=== PATIENT | female | born 1995 | race African-American/Black ===

== ENCOUNTER 2016-08-09 11:00 | Emergency (ER) | payer MEDICAID ==
[~2016-08-09] VITALS: Ht 152.4 cm; Wt 50.0 kg
[2016-08-09 11:03] VITALS: BP 132/78; PULSE 74; RESP 16; TEMP 98; O2SAT 100
[2016-08-09 11:38] LABS: BLOOD, URINE NEG (NEG); COMMENT (UR) CULT NOT INDICATED; CULTURE IF INDICATED CULT NOT INDICATED; GLUCOSE,URINE NEG (NEG); KETONE, URINE NEG (NEG); MUCUS URINE MOD /lpf (OCC); NITRITE,URINE NEG (NEG); PH, URINE 6.5 (5.0-8.5); SQUAMOUS EPITHELIAL CELL URINE 1 /hpf (0-5); URINE COLOR YELLOW (YELLW/STRAW)
[2016-08-09] MEDS ORDERED: SODIUM CHLOR 0.9% 1000 ML INJ 1,000 ML IV SCH (11:39)
[2016-08-09] MEDS ORDERED: SODIUM CHLORIDE 0.9% FLUSH 5 ML FLUSH IVF PRN (11:45)
[2016-08-09] MEDS ORDERED: ONDANSETRON HCL 4 MG/2 ML VIAL IVP ONE (11:45)
[2016-08-09] MEDS ORDERED: DICYCLOMINE HCL 10 MG CAP PO ONE (11:45)
[2016-08-09] MEDS ORDERED: MORPHINE SULFATE 4 MG/ML INJ IV PUSH ONE (11:45)
--- NOTE | 2016-08-09 11:46 | PD ---
HPI Chief Complaint: GI Complaint Time Seen by Provider: 11:35 Travel History International Travel<30 days: No Contact w/Intl Traveler<30days: No Traveled to known affect area: No History of Present Illness HPI The patient is a 21-year-old female who presents emergency department for abdominal pain. The patient states she developed abdominal pain last night. Abdominal pain initially was generalized, however, is currently located in the lower quadrants, left greater than right. The patient does note diarrhea which she describes as loose and soft without any visible blood. The patient also complains of nausea without any vomiting. The patient denies any fever, chills , or sweats. The patient denies any upper respiratory symptoms including cough , congestion, sore throat, and denies any associated myalgias. The patient's last menstrual cycle was July 29, 2016. The patient denies any dysuria, frequency, urgency, vaginal discharge, or vaginal bleeding. The patient's symptoms are moderate there are no known alleviating or exacerbating factors. The patient denies any sick contacts at home. Patient denies any recent international travel. The patient denies ingestion of any unusual foods recently. The patient denies any known history of inflammatory bowel disease. PFSH Past Medical History Medical History: Denies Significant Hx Developmental Delay: No Diminished Hearing: No Immunizations Current: Yes Tetanus Vaccination: < 5 Years Influenza Vaccination: No ?: Not LMP: 08/03/16 Past Surgical History Other Surgery: Yes (LUMP REMOVED FROM BREAST) Social History Alcohol Use: No Tobacco Use: No Substance Use: No Allergies-Medications (Allergen,Severity, Reaction): Coded Allergies: No Known Allergies (Unverified , 08/09/16) Reported Meds & Prescriptions Reported Meds & Active Scripts Active No Active Prescriptions or Reported Medications Review of Systems Except as stated in HPI: all other systems reviewed are Neg General / Constitutional: No: Fever HENT: No: Headaches, Lightheadedness, Sore Throat, Congestion Cardiovascular: No: Chest Pain or Discomfort Respiratory: No: Cough Gastrointestinal: Positive: Nausea, Diarrhea, Abdominal Pain, No: Vomiting Genitourinary: No: Urgency, Frequency, Dysuria, Discharge, Vaginal Bleeding Musculoskeletal: No: Myalgias Skin: No Rash Physical Exam Narrative GENERAL: Awake, alert, pleasant 21-year-old female who appears her stated age and is in no acute respiratory distress. SKIN: Warm and dry. HEAD: Atraumatic. Normocephalic. EYES: Pupils equal and round. No scleral icterus. No injection or drainage. ENT: No nasal bleeding or discharge. Mucous membranes pink and moist. NECK: Trachea midline. No JVD. CARDIOVASCULAR: Regular rate and rhythm. No murmur appreciated. RESPIRATORY: No accessory muscle use. Clear to auscultation. Breath sounds equal bilaterally. GASTROINTESTINAL: Abdomen soft, tender palpation left and right lower quadrant. No epigastric tenderness noted. Negative Edward's. Back: No CVA tenderness. MUSCULOSKELETAL: No obvious deformities. No clubbing. No cyanosis. No edema. NEUROLOGICAL: Awake and alert. No obvious cranial nerve deficits. Motor grossly within normal limits. Normal speech. PSYCHIATRIC: Appropriate mood and affect; insight and judgment normal. Data Data Last Documented VS Vital Signs Date Time Temp Pulse Resp B/P Pulse Ox O2 Delivery O2 Flow Rate FiO2 08/09/16 11:03 98.0 74 16 132/78 100 Room Air Orders Urinalysis - C+S If Indicated (08/09/16 11:08) Ed Urine Pregnancytest Poc (08/09/16 11:08) Complete Blood Count With Diff (08/09/16 11:39) Comprehensive Metabolic Panel (08/09/16 11:39) Lipase (08/09/16 11:39) Ct Abd/Pel W/O Iv Contrast (08/09/16 11:39) Iv Access Insert/Monitor (08/09/16 11:39) Ecg Monitoring (08/09/16 11:39) Oximetry (08/09/16 11:39) Morphine Inj (Morphine Inj) (08/09/16 11:45) Ondansetron Inj (Zofran Inj) (08/09/16 11:45) Sodium Chlor 0.9% 1000 Ml Inj (Ns 1000 M (08/09/16 11:39) Sodium Chloride 0.9% Flush (Ns Flush) (08/09/16 11:45) Dicyclomine (Bentyl) (08/09/16 11:45) Us Pelvis Comp W Transvaginal (08/09/16 ) Labs Laboratory Tests Test 08/09/16 08/09/16 11:10 11:50 Urine Color YELLOW Urine Turbidity CLEAR Urine pH 6.5 Urine Specific Termo 1.023 Urine Protein NEG mg/dL Urine Glucose (UA) NEG mg/dL Urine Ketones NEG mg/dL Urine Occult Blood NEG Urine Nitrite NEG Urine Bilirubin NEG Urine Urobilinogen LESS THAN 2.0 MG/DL Urine Leukocyte Esterase NEG Urine RBC LESS THAN 1 /hpf Urine WBC 1 /hpf Urine Squamous Epithelial 1 /hpf Cells Urine Mucus MOD /lpf Microscopic Urinalysis Comment CULT NOT INDICATED White Blood Count 7.2 TH/MM3 Red Blood Count 4.79 MIL/MM3 Hemoglobin 13.7 GM/DL Hematocrit 39.4 % Mean Corpuscular Volume 82.1 FL Mean Corpuscular Hemoglobin 28.6 PG Mean Corpuscular Hemoglobin 34.8 % Concent Red Cell Distribution Width 16.6 % Platelet Count 230 TH/MM3 Mean Platelet Volume 10.2 FL Neutrophils (%) (Auto) 67.3 % Lymphocytes (%) (Auto) 26.9 % Monocytes (%) (Auto) 5.0 % Eosinophils (%) (Auto) 0.6 % Basophils (%) (Auto) 0.2 % Neutrophils # (Auto) 4.8 TH/MM3 Lymphocytes # (Auto) 1.9 TH/MM3 Monocytes # (Auto) 0.4 TH/MM3 Eosinophils # (Auto) 0.0 TH/MM3 Basophils # (Auto) 0.0 TH/MM3 CBC Comment DIFF FINAL Differential Comment Sodium Level 141 MEQ/L Potassium Level 3.3 MEQ/L Chloride Level 109 MEQ/L Carbon Dioxide Level 25.6 MEQ/L Anion Gap 6 MEQ/L Blood Urea Nitrogen 3 MG/DL Creatinine 0.78 MG/DL Estimat Glomerular Filtration 113 ML/MIN Rate Random Glucose 94 MG/DL Calcium Level 8.7 MG/DL Total Bilirubin 0.4 MG/DL Aspartate Amino Transf 9 U/L (AST/SGOT) Alanine Aminotransferase 19 U/L (ALT/SGPT) Alkaline Phosphatase 41 U/L Total Protein 7.1 GM/DL Albumin 4.0 GM/DL Lipase 177 U/L [facility] Medical Decision Making Medical Screen Exam Complete: Yes Emergency Medical Condition: Yes Medical Record Reviewed: Yes Interpretation(s) Laboratory Tests Test 08/09/16 08/09/16 11:10 11:50 Urine Color YELLOW Urine Turbidity CLEAR Urine pH 6.5 Urine Specific Termo 1.023 Urine Protein NEG mg/dL Urine Glucose (UA) NEG mg/dL Urine Ketones NEG mg/dL Urine Occult Blood NEG Urine Nitrite NEG Urine Bilirubin NEG Urine Urobilinogen LESS THAN 2.0 MG/DL Urine Leukocyte Esterase NEG Urine RBC LESS THAN 1 /hpf Urine WBC 1 /hpf Urine Squamous Epithelial 1 /hpf Cells Urine Mucus MOD /lpf Microscopic Urinalysis Comment CULT NOT INDICATED White Blood Count 7.2 TH/MM3 Red Blood Count 4.79 MIL/MM3 Hemoglobin 13.7 GM/DL Hematocrit 39.4 % Mean Corpuscular Volume 82.1 FL Mean Corpuscular Hemoglobin 28.6 PG Mean Corpuscular Hemoglobin 34.8 % Concent Red Cell Distribution Width 16.6 % Platelet Count 230 TH/MM3 Mean Platelet Volume 10.2 FL Neutrophils (%) (Auto) 67.3 % Lymphocytes (%) (Auto) 26.9 % Monocytes (%) (Auto) 5.0 % Eosinophils (%) (Auto) 0.6 % Basophils (%) (Auto) 0.2 % Neutrophils # (Auto) 4.8 TH/MM3 Lymphocytes # (Auto) 1.9 TH/MM3 Monocytes # (Auto) 0.4 TH/MM3 Eosinophils # (Auto) 0.0 TH/MM3 Basophils # (Auto) 0.0 TH/MM3 CBC Comment DIFF FINAL Differential Comment Sodium Level 141 MEQ/L Potassium Level 3.3 MEQ/L Chloride Level 109 MEQ/L Carbon Dioxide Level 25.6 MEQ/L Anion Gap 6 MEQ/L Blood Urea Nitrogen 3 MG/DL Creatinine 0.78 MG/DL Estimat Glomerular Filtration 113 ML/MIN Rate Random Glucose 94 MG/DL Calcium Level 8.7 MG/DL Total Bilirubin 0.4 MG/DL Aspartate Amino Transf 9 U/L (AST/SGOT) Alanine Aminotransferase 19 U/L (ALT/SGPT) Alkaline Phosphatase 41 U/L Total Protein 7.1 GM/DL Albumin 4.0 GM/DL Lipase 177 U/L Last Impressions Abdomen/Pelvis CT 08/09/16 1139 Signed Impressions: Service Date/Time: July 12:33 - CONCLUSION: Small amount free fluid identified within the posterior cul-de-sac. The appendix is not visualized. Consider further evaluation with ultrasound. Carmen Cannon MD Pelvis Ultrasound 08/09/16 0000 Signed Impressions: Service Date/Time: July 14:24 - CONCLUSION: 1. 3.5 x 2.9 x 3.5 cm right uterine mass consistent with possible fibroid. 2. Unremarkable ovaries. 3. Some free fluid within the cul-de-sac Kevin Solis MD Differential Diagnosis Differential diagnosis includes viral syndrome, gastroenteritis, colitis, enteritis, diverticulitis, atypical appendicitis, PID, cervicitis, UTI, . Narrative Course IV was established and labs were drawn and sent. Bedside UA test was obtained, was negative. UA was sent to lab. The patient was administered morphine, Zofran, Bentyl, and IV fluids. CT of the abdomen and pelvis was ordered to rule out atypical appendicitis. The patient's laboratory evaluation is unremarkable. LFTs, white count, and lipase are negative. CT of the abdomen and pelvis reveals a small amount of free fluid identified within the posterior cul-de-sac. The appendix was not visualized. Suggested ultrasound for further evaluation of necessary. The patient's bedside UA test is negative, I doubt ruptured ectopic . The patient's abdominal pain is located mostly in the left lower quadrant with diarrhea, she has no fever, vomiting, or anorexia, I doubt appendicitis. The patient does have free fluid, I reevaluated symptoms/signs of possible pelvic exam. The patient denies any symptoms of pelvic infection and does not want a pelvic exam. Ultrasound was ordered to evaluate for possible ruptured ovarian cyst that could cause free fluid. The patient's pain had improved after the morphine. Ultrasound reveals mass in the right uterus consistent with most likely a fibroid. The patient's pain is left lower quadrant associated with diarrhea. Patient's symptoms have improved. Patient will be discharged home with Zofran and Bentyl. She is advised to follow-up with her primary physician. Return if symptoms worsen or progress. Diagnosis Primary Impression: Abdominal pain Qualified Code: R10.32 - Left lower quadrant pain Additional Impression: Diarrhea Qualified Code: R19.7 - Diarrhea, unspecified type Patient Instructions: General Instructions Additional Instructions: Please provide a patient a copy of her ultrasound results, CT results, and lab results at discharge. Medications as directed. Follow-up with your primary physician. Return if symptoms worsen or progress. Med/Other Pt SpecificInfo: Prescription(s) given Scripts Ondansetron (Zofran)4 Mg Tab4 Mg PO Q6HR PRN (NAUSEA OR VOMITING) #7 TAB Ref 0 Prov:Al Ramírez MD 08/09/16 Dicyclomine (Bentyl)20 Mg Tab20 Mg PO TID PRN (Bowel Management) #15 TAB Ref 0 Prov:Al Ramírez MD 08/09/16 Disposition: 01 DISCHARGE HOME Condition: Stable Al Ramírez MD Aug 09, 2016 11:46
[2016-08-09 12:07] LABS: AUTOMATED NEUTROPHIL # 4.8 TH/MM3 (1.8-7.7); BASOPHIL % 0.2 % (0.0-2.0); EOSINOPHIL % 0.6 % (0.0-4.0); HEMATOCRIT 39.4 % (35.0-46.0); HEMO FLAGS DIFF FINAL; LYMPH % 26.9 % (9.0-44.0); LYMPHOCYTE # 1.9 TH/MM3 (1.0-4.8); MEAN CELL VOLUME 82.1 FL (80.0-100.0); MEAN CORPUSCULAR HEMOGLOBIN 28.6 PG (27.0-34.0); MEAN CORPUSCULAR HGB CONC 34.8 % (32.0-36.0); NEUT % 67.3 % (16.0-70.0); PLATELET COUNT 230 TH/MM3 (150-450); RED BLOOD COUNT 4.79 MIL/MM3 (4.00-5.30); RED CELL DISTRIBUTION WIDTH 16.6 % (11.6-17.2); WHITE BLOOD COUNT 7.2 TH/MM3 (4.0-11.0)
[2016-08-09 12:25] LABS: ANION GAP 6 MEQ/L (5-15); AST (GOT) 9 U/L (15-37); BICARBONATE 25.6 MEQ/L (21.0-32.0); BLOOD UREA NITROGEN 3 MG/DL (7-18); CHLORIDE 109 MEQ/L (98-107); GLOMERULAR FILTRATION RATE 113 ML/MIN (>89); POTASSIUM 3.3 MEQ/L (3.5-5.1); SODIUM (NA) 141 MEQ/L (136-145)
[2016-08-09 12:29] LABS: ALKALINE PHOSPHATASE 41 U/L (45-117); ALT (GPT) 19 U/L (10-53); TOTAL BILIRUBIN ADULT 0.4 MG/DL (0.2-1.0)
--- NOTE | 2016-08-09 13:16 | RADRPT ---
EXAM DATE/TIME: 08/09/2016 12:33 [facility] COMPARISON: No previous studies available for comparison. INDICATIONS : Lower abdomen pain with nausea and diarrhea. ORAL CONTRAST: No oral contrast ingested. RADIATION DOSE: 4.76 CTDIvol (mGy) MEDICAL HISTORY : None SURGICAL HISTORY : None. ENCOUNTER: Initial ACUITY: 1 day PAIN SCALE: 8/10 LOCATION: lower quadrant Abdomen TECHNIQUE: Volumetric scanning of the abdomen and pelvis was performed. Using automated exposure control and ad justment of the mA and/or kV according to patient size, radiation dose was kept as low as reasonably achievable to obtain optimal diagnostic quality images. FINDINGS: LOWER LUNGS: The visualized lower lungs are clear. LIVER: Homogeneous density without lesion. There is no dilation of the biliary tree. No calcified gallston es. SPLEEN: Normal size without lesion. PANCREAS: Within normal limits. KIDNEYS: Normal in size and shape. There is no mass, stone, or hydronephrosis. ADRENAL GLANDS: Within normal limits. VASCULAR: There is no aortic aneurysm. BOWEL/MESENTERY: The stomach, small bowel, and colon demonstrate no acute abnormality. There is a small amount of sherrell e fluid identified within the pelvis and posterior cul-de-sac. The appendix is not visualized. ABDOMINAL WALL: Within normal limits. RETROPERITONEUM: There is no lymphadenopathy. BLADDER: No wall thickening or mass. REPRODUCTIVE: Within normal limits. INGUINAL: There is no lymphadenopathy or hernia. MUSCULOSKELETAL: Within normal limits for patient age. CONCLUSION: Small amount free fluid identified within the posterior cul-de-sac. The appendix is not visualized. C onsider further evaluation with ultrasound. Carmen Cannon MD on August 09, 2016 at 13:12 Board Certified Radiologist. This report was verified electronically.
--- NOTE | 2016-08-09 15:57 | RADRPT ---
EXAM DATE/TIME: 08/09/2016 14:24 [facility] COMPARISON: No previous studies available for comparison. INDICATIONS : Pelvic pain. MEDICAL HISTORY : Ectopic 06/2016. SURGICAL HISTORY : Right breast lumpectomy. ENCOUNTER: Initial ACUITY: 4-6 days PAIN SCORE: 5/10 LOCATION: Bilateral pelvis MEASUREMENTS: UTERUS: 7.6 x 3.7 x 5.6 cm ENDOMETRIAL STRIPE: 8 mm RIGHT OVARY: 4.4 x 2.2 x 3.4 cm LEFT OVARY: 3.0 x 2.4 x 2.4 cm FINDINGS: UTERUS: The myometrium has homogeneous echotexture without mass. There is a solid mass within the right side of the uterus measuring 3.5 x 2.9 x 3.5 cm consistent with possible fibroid. RIGHT OVARY: Ovary contains no mass or significant cystic lesion. LEFT OVARY: Ovary contains no mass or significant cystic lesion. MISCELLANEOUS: Some free fluid is noted within the cul-de-sac. CONCLUSION: 1. 3.5 x 2.9 x 3.5 cm right uterine mass consistent with possible fibroid. 2. Unremarkable ovaries. 3. Some free fluid within the cul-de-sac Kevin Solis MD on August 09, 2016 at 15:51 Board Certified Radiologist. This report was verified electronically.
[2016-08-09] MEDS ORDERED: ZOFR4TAB PO (16:13)
[2016-08-09] MEDS ORDERED: BENT20TA PO (16:13)
== END 2016-08-09 17:23 | disposition home or self-care (01) ==
LOC: NETRI 11:00 → NEPA 17:23
DX: R10.30 Lower abdominal pain, unspecified (principal); R19.7 Diarrhea, unspecified
CPT/HCPCS: 74176; 76830; 76856; 80053; 81001; 83690; 84703; 85025; 96361; 96374; 96375; 99284; J2270; J2405; J7030

== ENCOUNTER 2016-08-10 08:46 | Emergency (ER) | payer MEDICAID ==
[~2016-08-10] VITALS: Ht 152.4 cm; Wt 50.0 kg
[~2016-08-10 08:46] MED LIST: BENT20TA PO; ZOFR4TAB PO
[2016-08-10 08:52] VITALS: BP 114/84; PULSE 72; RESP 16; TEMP 97.9; O2SAT 96
[2016-08-10] MEDS ORDERED: AZITHROMYCIN PWD FOR SUSP 1 GM PACKET PO ONE (10:30)
[2016-08-10] MEDS ORDERED: LIDOCAINE HCL 1% 50 ML VIAL IM ONE (10:30)
[2016-08-10] MEDS ORDERED: cefTRIAXone 250 MG VIAL IM ONE (10:30)
[2016-08-10] MEDS ORDERED: KETOROLAC TROMETHAMINE 60 MG/2 ML (IM) VIAL IM ONE (10:30)
--- NOTE | 2016-08-10 12:06 | PD ---
HPI Chief Complaint: Abdominal Pain Time Seen by Provider: 10:14 Travel History International Travel<30 days: No Contact w/Intl Traveler<30days: No Traveled to known affect area: No History of Present Illness HPI 21-year-old female here with complaint of abdominal pain. Patient seen here in our emergency department yesterday for similar complaints. This is primarily suprapubic and right sided. She had a CT abdomen and pelvis that was negative but the appendix was not visualized. She had a pelvic ultrasound that showed a uterine fibroid on the right aspect of the uterus but good bilateral ovarian flow without cyst. Laboratory workup was negative and she was discharged to home with prescriptions but has not yet filled these. Patient states that the pain persists. Again this is suprapubic, right slightly greater than left. She denies any urinary symptoms or abnormal vaginal discharge, new sexual partners, etc. Through chart review however patient was seen in our emergency department in June and had pelvic exam that was positive for chlamydia. She has not yet been treated for this. Patient states that she never found a letter and her mail letting her know that she tested positive. No fevers or chills.no nausea or vomiting. PFSH Past Medical History Medical History: Denies Significant Hx Developmental Delay: No Diminished Hearing: No Immunizations Current: Yes ?: Not LMP: 08/03/2016 Past Surgical History Other Surgery: Yes (LUMP REMOVED FROM BREAST) Social History Alcohol Use: No Tobacco Use: No Substance Use: No Allergies-Medications (Allergen,Severity, Reaction): Coded Allergies: No Known Allergies (Unverified , 08/10/16) Reported Meds & Prescriptions Reported Meds & Active Scripts Active Zofran (Ondansetron HCl) 4 Mg Tab 4 Mg PO Q6HR PRN Bentyl (Dicyclomine HCl) 20 Mg Tab 20 Mg PO TID PRN Review of Systems Except as stated in HPI: all other systems reviewed are Neg Physical Exam Narrative GENERAL:well-appearing female in no acute distress SKIN: Warm and dry. HEAD: Normocephalic. EYES: No scleral icterus. No injection or drainage. ENT: Mucous membranes pink and moist. NECK: Tsupple CARDIOVASCULAR: Regular rate and rhythm. No murmur appreciated. RESPIRATORY: No accessory muscle use. Clear to auscultation. Breath sounds equal bilaterally. GASTROINTESTINAL: Abdomen soft, minimal suprapubic and right lower quadrant tenderness to palpation without rebound or guarding MUSCULOSKELETAL: normal gait NEUROLOGICAL: Awake and alert. Normal speech. PSYCHIATRIC: Appropriate mood and affect; insight and judgment normal. Data Data Last Documented VS Vital Signs Date Time Temp Pulse Resp B/P Pulse Ox O2 Delivery O2 Flow Rate FiO2 08/10/16 12:09 16 08/10/16 08:52 97.9 72 114/84 96 Room Air Orders Us Abdomen Lower Limited (08/10/16 ) Azithromycin Powd Pack (Zithromax Powd P (08/10/16 10:30) Ceftriaxone Inj (Rocephin Inj) (08/10/16 10:30) Lidocaine 1% Inj (50 Ml) (Xylocaine 1% I (08/10/16 10:30) Ketorolac Inj (Toradol Inj) (08/10/16 10:30) MDM Medical Decision Making Medical Screen Exam Complete: Yes Emergency Medical Condition: Yes Medical Record Reviewed: Yes Differential Diagnosis 21-year-old female here with complaint of abdominal pain for the second time in the last 2 days. Patient has a history of positive chlamydia that she has not been tested for and this certainly could be giving her some pain with PID. She had pelvic ultrasound yesterday that showed no evidence of tubo-ovarian abscess , ovarian torsion, ovarian cyst. Her abdominal examination is overall benign and my suspicion for ovarian torsion or appendicitis is quite low. I do not think she warrants repeat imaging for ovarian torsion. With regards to appendicitis, she had a negative CT abdomen and pelvis, but the appendix was not visualized. Will repeat ultrasound here for potential visualization of the appendix as I feel she does not warrant repeat CT scanning. Narrative Course Patient placed on monitor. She was given Rocephin, azithromycin, Toradol to treat her positive chlamydia test and pain. Ultrasound of the abdomen showed no sonographic evidence of acute appendicitis. I suspect that patient may be having some discomfort from the size of her uterine fibroid.patient was encouraged to follow up with [facility] for further management. Diagnosis Primary Impression: Fibroid uterus Qualified Code: D25.9 - Uterine leiomyoma, unspecified location Additional Impressions: Chlamydia Pelvic pain Referrals: [facility] Technologist call for appointment [facility] call for appointment Additional Instructions: Tylenol, ibuprofen as needed for pain. Follow-up with [facility]PERATOR for further management of uterine fibroid. Inform all your sexual partners about your positive chlamydia test. They should be tested and treated appropriately. Med/Other Pt SpecificInfo: No Change to Meds Disposition: 01 DISCHARGE HOME Condition: Joanne Gregory MD Aug 10, 2016 12:06
[2016-08-10 12:09] VITALS: RESP 16
--- NOTE | 2016-08-10 12:15 | RADRPT ---
EXAM DATE/TIME: 08/10/2016 11:04 [facility] COMPARISON: CT ABDOMEN & PELVIS W/O CONTRAST, August 09, 2016, 12:33. INDICATIONS : Right lower quadrant pain. MEDICAL HISTORY : Ectopic 06/2016. SURGICAL HISTORY : Right breast lumpectomy. ENCOUNTER: Initial ACUITY: 1 month PAIN SCORE: 8/10 LOCATION: Right lower quadrant AREA EVALUATED: Bilateral lower quadrants. FINDINGS: Imaging of the right lower quadrant was performed to further evaluation of possible appendicitis. No definite dilated, fluid-filled, thick-walled appendix is identified. The left lower quadrant was also scanned and demonstrates no focal sonographic abnormality. CONCLUSION: No sonographic evidence of acute appendicitis. Kevin Solis MD on August 10, 2016 at 12:11 Board Certified Radiologist. This report was verified electronically.
== END 2016-08-10 12:46 | disposition home or self-care (01) ==
LOC: NEPE 08:46
DX: D25.9 Leiomyoma of uterus, unspecified (principal); A74.9 Chlamydial infection, unspecified; R10.2 Pelvic and perineal pain
CPT/HCPCS: 76705; 96372; 99284; J0696; J1885

== ENCOUNTER 2017-12-24 20:51 | Emergency (ER) | payer SELFPAY ==
[2017-12-24 20:57] VITALS: BP 128/60; PULSE 81; RESP 16; TEMP 97.8; O2SAT 100
--- NOTE | 2017-12-24 22:29 | PD ---
HPI Chief Complaint: Abdominal Pain Time Seen by Provider: 22:22 Travel History International Travel<30 days: No Contact w/Intl Traveler<30days: No Traveled to known affect area: No History of Present Illness HPI 22yo F with no PMH presents to the ED with c/o lower abdominal pain that just started less than an hour ago. Has some nausea. Took acetaminophen which is starting to help now. Pain is sharp, lower abdomen and constant. Severity is mild. Denies any fever, chest pain, sob, vaginal bleeding, vaginal discharge, focal weakness or numbness. PFSH Past Medical History Developmental Delay: No Diminished Hearing: No Immunizations Current: Yes ?: Unknown LMP: 12/14/2017 Past Surgical History Other Surgery: Yes (LUMP REMOVED FROM BREAST) Social History Alcohol Use: No Tobacco Use: No Substance Use: No Allergies-Medications (Allergen,Severity, Reaction): Coded Allergies: No Known Allergies (Unverified Adverse Reaction, Unknown, 12/24/17) Reported Meds & Prescriptions Reported Meds & Active Scripts Active Tylenol (Acetaminophen) 325 Mg Tab 650 Mg PO Q6H PRN Zofran (Ondansetron HCl) 4 Mg Tab 4 Mg PO Q6HR PRN Bentyl (Dicyclomine HCl) 20 Mg Tab 20 Mg PO TID PRN Review of Systems Except as stated in HPI: all other systems reviewed are Neg Physical Exam Narrative GENERAL: 22yo F not in distress. SKIN: Focused skin assessment warm/dry. HEAD: Atraumatic. Normocephalic. EYES: Pupils equal and round. No scleral icterus. No injection or drainage. ENT: No nasal bleeding or discharge. Mucous membranes pink and moist. NECK: Trachea midline. No JVD. CARDIOVASCULAR: Regular rate and rhythm. No murmur appreciated. RESPIRATORY: No accessory muscle use. Clear to auscultation. Breath sounds equal bilaterally. GASTROINTESTINAL: Abdomen soft, mild suprapubic ttp and mild ttp RLQ. No rebound tenderness or guarding. BACK: No CVA tenderness bilaterally. MUSCULOSKELETAL: No obvious deformities. No clubbing. No cyanosis. No edema. NEUROLOGICAL: Awake and alert. No obvious cranial nerve deficits. Motor grossly within normal limits. Normal speech. PSYCHIATRIC: Appropriate mood and affect; insight and judgment normal. Data Data Last Documented VS Vital Signs Date Time Temp Pulse Resp B/P (MAP) Pulse Ox O2 Delivery O2 Flow Rate FiO2 5/29/18 20:57 97.8 81 16 128/60 (82) 100 Orders Orders Complete Blood Count With Diff (12/24/17 22:25) Comprehensive Metabolic Panel (12/24/17 22:25) Lipase (12/24/17 22:25) Ed Urine Pregnancytest Poc (12/24/17 22:25) Urinalysis - C+S If Indicated (12/24/17 22:25) Ketorolac Inj (Toradol Inj) (12/24/17 22:30) Ondansetron Odt (Zofran Odt) (12/24/17 22:30) Ct Abd/Pel W Iv Contrast(Rout) (12/24/17 ) Iohexol 350 Inj (Omnipaque 350 Inj) (12/24/17 23:39) Ed Discharge Order (12/25/17 00:23) Labs Laboratory Tests Test 12/24/17 22:35 White Blood Count 14.2 TH/MM3 Red Blood Count 4.99 MIL/MM3 Hemoglobin 13.8 GM/DL Hematocrit 40.1 % Mean Corpuscular Volume 80.2 FL Mean Corpuscular Hemoglobin 27.7 PG Mean Corpuscular Hemoglobin Concent 34.5 % Red Cell Distribution Width 17.0 % Platelet Count 233 TH/MM3 Mean Platelet Volume 9.4 FL Neutrophils (%) (Auto) 75.2 % Lymphocytes (%) (Auto) 18.8 % Monocytes (%) (Auto) 5.3 % Eosinophils (%) (Auto) 0.5 % Basophils (%) (Auto) 0.2 % Neutrophils # (Auto) 10.7 TH/MM3 Lymphocytes # (Auto) 2.7 TH/MM3 Monocytes # (Auto) 0.7 TH/MM3 Eosinophils # (Auto) 0.1 TH/MM3 Basophils # (Auto) 0.0 TH/MM3 CBC Comment DIFF FINAL Differential Comment Urine Color YELLOW Urine Turbidity HAZY Urine pH 7.0 Urine Specific [place] 1.035 Urine Protein 30 mg/dL Urine Glucose (UA) NEG mg/dL Urine Ketones TRACE mg/dL Urine Occult Blood NEG Urine Nitrite NEG Urine Bilirubin NEG Urine Urobilinogen 2.0 MG/DL Urine Leukocyte Esterase SMALL Urine RBC LESS THAN 1 /hpf Urine WBC 6 /hpf Urine Squamous Epithelial Cells 9 /hpf Urine Mucus MANY /lpf Microscopic Urinalysis Comment CULT NOT INDICATED Blood Urea Nitrogen 8 MG/DL Creatinine 0.71 MG/DL Random Glucose 98 MG/DL Total Protein 8.0 GM/DL Albumin 4.1 GM/DL Calcium Level 9.0 MG/DL Alkaline Phosphatase 61 U/L Aspartate Amino Transf (AST/SGOT) 16 U/L Alanine Aminotransferase (ALT/SGPT) 20 U/L Total Bilirubin 0.5 MG/DL Sodium Level 138 MEQ/L Potassium Level 3.8 MEQ/L Chloride Level 102 MEQ/L Carbon Dioxide Level 28.4 MEQ/L Anion Gap 8 MEQ/L Estimat Glomerular Filtration Rate 125 ML/MIN Lipase 174 U/L [facility] Medical Decision Making Medical Screen Exam Complete: Yes Emergency Medical Condition: Yes Differential Diagnosis Cystitis vs. colitis vs. appendicitis Narrative Course 22yo very well appearing female with lower abdominal pain for less than an hour. Has some nausea but pain is improved after acetaminophen. Denies any vaginal discharge or bleeding. Labs reviewed, mild leukocytosis at 14.2. H/H normal. CMP unremarkable. Lipase normal. UA showed WBC 6 but squamous is 9. Culture not indicated. Pt is very well appearing and pain has resolved after toradol. Urine negative. CT a/p showed multiple uterine fibroids the largest one is exophytic on right protrudes into right adnexa. Left ovarian cyst with slight fluid in cul-de-sac. I discussed with radiologist and he does not see appendicitis. Pt also with no pain now and will follow up with [employer]. Return precautions given. Diagnosis Primary Impression: Fibroid uterus Qualified Codes: D25.9 - Leiomyoma of uterus, unspecified Patient Instructions: General Instructions Departure Forms: Tests/Procedures Additional Instructions: Please follow up with your assistant front office manager regarding the uterine fibroids. Please return to the ED if symptoms worsen. Med/Other Pt SpecificInfo: Prescription(s) given Scripts Acetaminophen (Tylenol) 325 Mg Tab 650 MG PO Q6H Y for PAIN SCALE 1 TO 4, #20 TAB 0 Refills Prov: Sybil Henderson DO 12/25/17 Disposition: 01 DISCHARGE HOME Condition: Stable Sybil Henderson December 24, 2017 22:29
[2017-12-24] MEDS ORDERED: ONDANSETRON ODT 4 MG TAB PO ONE (22:30)
[2017-12-24] MEDS ORDERED: KETOROLAC TROMETHAMINE 30 MG/ML (IVP) VIAL IV PUSH ONE (22:30)
[2017-12-24 22:45] LABS: BILIRUBIN, URINE NEG (NEG); BLOOD, URINE NEG (NEG); GLUCOSE,URINE NEG (NEG); KETONE, URINE TRACE mg/dL (NEG); MUCUS URINE MANY /lpf (OCC); NITRITE,URINE NEG (NEG); SQUAMOUS EPITHELIAL CELL URINE 9 /hpf (0-5); URINE COLOR YELLOW (YELLW/STRAW); URINE LEUKOCYTE ESTERASE SMALL (NEG)
[2017-12-24 22:46] LABS: AUTOMATED NEUTROPHIL # 10.7 TH/MM3 (1.8-7.7); BASOPHIL % 0.2 % (0.0-2.0); EOSINOPHIL # 0.1 TH/MM3 (0-0.4); EOSINOPHIL % 0.5 % (0.0-4.0); HEMATOCRIT 40.1 % (35.0-46.0); HEMOGLOBIN 13.8 GM/DL (11.6-15.3); LYMPH % 18.8 % (9.0-44.0); LYMPHOCYTE # 2.7 TH/MM3 (1.0-4.8); MEAN CELL VOLUME 80.2 FL (80.0-100.0); MEAN CORPUSCULAR HEMOGLOBIN 27.7 PG (27.0-34.0); MEAN CORPUSCULAR HGB CONC 34.5 % (32.0-36.0); MEAN PLATELET VOLUME 9.4 FL (7.0-11.0); MONO % 5.3 % (0.0-8.0); MONOCYTE # 0.7 TH/MM3 (0-0.9); NEUT % 75.2 % (16.0-70.0); PLATELET COUNT 233 TH/MM3 (150-450); RED BLOOD COUNT 4.99 MIL/MM3 (4.00-5.30); WHITE BLOOD COUNT 14.2 TH/MM3 (4.0-11.0)
[2017-12-24 23:10] LABS: ALBUMIN 4.1 GM/DL (3.4-5.0); AST (GOT) 16 U/L (15-37); BICARBONATE 28.4 MEQ/L (21.0-32.0); BLOOD UREA NITROGEN 8 MG/DL (7-18); CHLORIDE 102 MEQ/L (98-107); CREATININE 0.71 MG/DL (0.50-1.00); GLOMERULAR FILTRATION RATE 125 ML/MIN (>89); GLUCOSE,RANDOM 98 MG/DL (74-106); SODIUM (NA) 138 MEQ/L (136-145)
[2017-12-24 23:11] LABS: ALT (GPT) 20 U/L (10-53)
[2017-12-24 23:13] LABS: ALKALINE PHOSPHATASE 61 U/L (45-117); TOTAL BILIRUBIN ADULT 0.5 MG/DL (0.2-1.0)
[2017-12-24] MEDS ORDERED: IOHEXOL 350 MG/ML 10 ML VIAL (for RAD DIAG) IVCONTRAST ONE (23:39)
--- NOTE | 2017-12-24 23:54 | RADRPT ---
EXAM DATE: 12/24/2017 11:39 PM EDT AGE/SEX: 22 years / Female INDICATIONS: Right lower quadrant pain. CLINICAL DATA: This is the patient's initial encounter. Patient reports that signs and symptoms have been present for 1 day and indicates a pain score of 8/10. MEDICAL/SURGICAL HISTORY: None. None. ORAL CONTRAST: No oral contrast ingested. RADIATION DOSE: 6.57 CTDI (mGy) COMPARISON: No prior exams available for comparison. TECHNIQUE: Multiple contiguous axial images were obtained through the abdomen and pelvis following b olus infusion of 96 ml Omnipaque 350 (iohexol) nonionic water-soluble contrast as a single exam dos e. No oral contrast ingested. Using automated exposure control and adjustment of the mA and/or kV ac cording to patient size, the radiation dose was kept as low as reasonably achievable to obtain optima l diagnostic quality images. FINDINGS: Abdomen CT: The liver, spleen, pancreas, kidneys, adrenals are unremarkable. There is no evidence for any appreci able pathological adenopathy, free fluid, or bowel obstruction. Pelvic CT: There is an approximate 1.9 cm simple cyst in the left ovary. There is slight amount of fluid in the cul-de-sac. There are multiple large fibroids in the uterus mainly on the right side the largest one is exophytic protruding into the right adnexa measures almost 4 cm in size. The right ovary appears i ntact. CONCLUSION: 1. Multiple uterine fibroids the largest one is exophytic on the right protrudes into the right adne xa. 2. Left ovarian cyst with slight fluid in the cul-de-sac. Electronically signed by: Ximena Block MD 12/24/2017 11:52 PM EDT
[2017-12-25] MEDS ORDERED: TYLE325T PO (00:22)
[2017-12-25 00:44] VITALS: BP 115/75
== END 2017-12-25 00:46 | disposition home or self-care (01) ==
LOC: NEPD 20:51
DX: D25.9 Leiomyoma of uterus, unspecified (principal); N83.202 Unspecified ovarian cyst, left side
CPT/HCPCS: 74177; 80053; 81001; 83690; 84703; 85025; 96374; 99284; J1885; Q9967